=== PATIENT | male | born 1970 | race Caucasian/White ===

== ENCOUNTER 2018-07-05 11:53 | Emergency (ER) | payer MEDICARE, MEDICAID ==
[2018-07-05 12:03] VITALS: RESP 20
[2018-07-05] MEDS ORDERED: HYDROMORPHONE 1 MG/ML SYRINGE IV PRN (12:43)
[2018-07-05] MEDS ORDERED: KETOROLAC TROMETHAMINE 30 MG/ML SOL IV ONE (12:43)
[2018-07-05] MEDS ORDERED: SOLUMEDROL 125 MG/2 ML 125 MG/2 ML PDS IV ONE (12:44)
[2018-07-05] MEDS ORDERED: HYDROMORPHONE 1 MG/ML SYRINGE ONE (12:57)
[2018-07-05] MEDS ORDERED: SOLUMEDROL 125 MG/2 ML 125 MG/2 ML PDS ONE (12:58)
[2018-07-05] MEDS ORDERED: KETOROLAC TROMETHAMINE 30 MG/ML SOL ONE (12:58)
[2018-07-05 13:02] LABS: BASOPHILS % (AUTO) 1 % (0-3); EOSINOPHILS % (AUTO) 2 % (0-9); HEMATOCRIT 45 % (39-53); HEMOGLOBIN 15.5 gm/dl (13.5-17.7); LYMPHOCYTES % (AUTO) 36.6 % (10-50); MEAN CORPUSCULAR HEMOGLOBIN 29.5 pg (27.0-32.0); MEAN CORPUSCULAR HGB CONC 34.2 gm/dl (32.0-36.0); MEAN CORPUSCULAR VOLUME 86 fL (80-100); MONOCYTES % (AUTO) 6.7 % (0-12); NEUTROPHILS % (AUTO) 53.4 % (37-80)
[2018-07-05 13:17] LABS: ALBUMIN 3.3 gm/dl (3.4-5.0); BILIRUBIN,TOTAL 0.4 mg/dl (0.2-1.0); CALCIUM 8.4 mg/dl (8.5-10.1); CARBON DIOXIDE 28.7 mEq/L (21-32); CREATININE 1.21 mg/dl (0.80-1.30); TOTAL PROTEIN 6.5 gm/dl (6.4-8.2)
[2018-07-05] MEDS ORDERED: ONDANSETRON HCL 4 MG/2 ML SOL IV ONE (13:36)
[2018-07-05] MEDS ORDERED: ONDANSETRON HCL 4 MG/2 ML SOL ONE (13:37)
[2018-07-05 13:50] VITALS: TEMP 97.4
[2018-07-05 14:21] VITALS: BP 133/80; PULSE 83; O2SAT 98
== END 2018-07-05 14:27 | disposition home or self-care (01) | DRG 552 ==
LOC: ED 11:53
DX: M54.5 Low back pain (principal); G89.29 Other chronic pain
CPT/HCPCS: 36415; 72131; 80053; 85025; 96374; 96375; 99283; 99285; J1885; J2405; J2930; J1170